=== PATIENT | male | born 1960 | race Caucasian/White ===

== ENCOUNTER → 2023-09-01 | Outpatient (CLI) | payer MEDICAID ==
[~2023-09-01] MED LIST: BISO1TAB19 PO; LOPE1CAP5 PO; ONDA-84 PO; PROC10TA5 PO; TAMS1CAP17 PO
== END ==
LOC: M PLARAD 11:06
PROVIDERS: ATTEND Nurse Practitioner Family
DX: C20 Malignant neoplasm of rectum (principal); R59.0 Localized enlarged lymph nodes
CPT/HCPCS: 78815; A9552

== ENCOUNTER → 2023-09-12 | Outpatient (CLI) | payer MEDICAID | LOC: M ONCR 13:45 | PROVIDERS: ATTEND General Practice | DX: C20 Malignant neoplasm of rectum (principal); C78.7 Secondary malignant neoplasm of liver and intrahepatic bile duct; F17.210 Nicotine dependence, cigarettes, uncomplicated; Z71.2 Person consulting for explanation of examination or test findings; Z92.21 Personal history of antineoplastic chemotherapy; Z79.899 Other long term (current) drug therapy ==

== ENCOUNTER → 2023-11-27 | Outpatient (CLI) | payer MEDICAID | LOC: M ONCR 11:07 | PROVIDERS: ATTEND General Practice | DX: C20 Malignant neoplasm of rectum (principal); R59.0 Localized enlarged lymph nodes; F17.210 Nicotine dependence, cigarettes, uncomplicated; Z71.2 Person consulting for explanation of examination or test findings; Z85.05 Personal history of malignant neoplasm of liver; Z79.899 Other long term (current) drug therapy; Z92.21 Personal history of antineoplastic chemotherapy ==

== ENCOUNTER 2024-01-13 08:19 | Outpatient (RCR) | payer MEDICAID | END 2024-01-25 | LOC: M ONCR 08:19 | PROVIDERS: ATTEND General Practice | DX: Z51.0 Encounter for antineoplastic radiation therapy (principal); C20 Malignant neoplasm of rectum ==

== ENCOUNTER → 2024-07-14 | Outpatient (CLI) | payer MEDICAID | LOC: M ONCR 08:32 | PROVIDERS: ATTEND General Practice | DX: C20 Malignant neoplasm of rectum (principal); C78.7 Secondary malignant neoplasm of liver and intrahepatic bile duct; F17.210 Nicotine dependence, cigarettes, uncomplicated; Z92.21 Personal history of antineoplastic chemotherapy; Z79.899 Other long term (current) drug therapy ==

== ENCOUNTER → 2024-10-12 | Outpatient (CLI) | payer MEDICAID | LOC: M ONCR 07:37 | PROVIDERS: ATTEND General Practice | DX: C20 Malignant neoplasm of rectum (principal); C78.7 Secondary malignant neoplasm of liver and intrahepatic bile duct; F17.218 Nicotine dependence, cigarettes, with other nicotine-induced disorders; Z79.620 Long term (current) use of immunosuppressive biologic; Z92.21 Personal history of antineoplastic chemotherapy; Z92.3 Personal history of irradiation; I25.2 Old myocardial infarction ==

== ENCOUNTER → 2025-04-05 | Outpatient (CLI) | payer MEDICAID ==
[2025-04-05 13:03] LABS: ALT/SGPT 47 U/L (7.0-40); AST/SGOT 44 U/L (<34); CALCIUM LEVEL 8.4 MG/DL (8.3-10.6); CARBON DIOXIDE LEVEL 28 MMOL/L (20-31); CHLORIDE LEVEL 105 MMOL/L (98-107); CREATININE FOR GFR 0.68 MG/DL (0.70-1.30); GLOMERULAR FILTRATION RATE > 90.0 (>49); POTASSIUM SERUM 3.3 MMOL/L (3.5-5.1); SODIUM LEVEL 143 MMOL/L (136-145)
== END ==
LOC: M LAB 12:03
PROVIDERS: ATTEND General Practice
DX: C78.7 Secondary malignant neoplasm of liver and intrahepatic bile duct (principal)

== ENCOUNTER → 2025-04-06 | Outpatient (CLI) | payer MEDICAID ==
[~2025-04-06] MED LIST changes: +ISOVUE-370 76% 100 ML VIAL As Ordered ONE
== END ==
LOC: M RAD 10:32
PROVIDERS: ATTEND General Practice
DX: C78.7 Secondary malignant neoplasm of liver and intrahepatic bile duct (principal); N40.0 Benign prostatic hyperplasia without lower urinary tract symptoms; N32.89 Other specified disorders of bladder; K63.89 Other specified diseases of intestine
CPT/HCPCS: 74178; Q9967